=== PATIENT | female | born 1985 | race African-American/Black ===

== ENCOUNTER 2021-11-23 00:39 | Emergency (ER) | payer MEDICAID ==
[~2021-11-23] VITALS: Ht 162.6 cm; Wt 72.6 kg
[2021-11-23 00:58] VITALS: BP 145/80
[2021-11-23] MEDS ORDERED: IBUPROFEN 400 MG TABLET ONE (01:11)
[2021-11-23] MEDS ORDERED: IBUPROFEN 400 MG TABLET PO ONE (01:30)
--- NOTE | 2021-11-23 01:58 | NUR ---
Patient does not wish to proceed with medical care recommended by Dr. KEBEDE. Patient given information related to possible complications, up to and including , which could occur as a result of leaving the hospital at this time. Patient verbalizes understanding of risks involved due to leaving against medical advice. Patient has signed AMA form.
== END 2021-11-23 01:59 | disposition left against medical advice (07) ==
LOC: ER 00:50
DX: M25.511 Pain in right shoulder (principal); Z60.2 Problems related to living alone

== ENCOUNTER 2021-11-26 00:52 | Emergency (ER) | payer MEDICAID ==
[~2021-11-26] VITALS: Ht 162.6 cm; Wt 77.1 kg
[2021-11-26 01:10] VITALS: BP 150/80
[2021-11-26] MEDS ORDERED: KETOROLAC TROMETHAMINE 15 MG/ML VIAL ONE (01:29)
[2021-11-26] MEDS ORDERED: CYCLOBENZAPRINE 10 MG TABLET ONE (01:29)
[2021-11-26] MEDS ORDERED: KETOROLAC TROMETHAMINE INJ 60 MG/2 ML VIAL IM ONE (01:30)
[2021-11-26] MEDS ORDERED: CYCLOBENZAPRINE 10 MG TABLET PO ONE (01:30)
[2021-11-26] MEDS ORDERED: NAPR-1192 PO (02:33)
[2021-11-26] MEDS ORDERED: METH4TAB3 PO (02:33)
[2021-11-26] MEDS ORDERED: CYCL5TAB PO (02:33)
== END 2021-11-26 02:38 | disposition home or self-care (01) ==
LOC: ER 00:53
DX: M54.12 Radiculopathy, cervical region (principal); M79.601 Pain in right arm; R20.2 Paresthesia of skin; Z79.899 Other long term (current) drug therapy
CPT/HCPCS: 72125; 96372; 99285; J1885